=== PATIENT | male | born 1990 | race American Indian/Alaskan Native ===

== ENCOUNTER 2022-10-22 00:46 | Emergency (ER) | payer SELFPAY ==
[2022-10-22] MEDS ORDERED: Diphtheria,Pertussis(Acell),Tetanus Vaccine 0.5 ML Syringe IM ONE (02:48)
[2022-10-22] MEDS ORDERED: amLODIPine 10 MG Tab PO STA (02:49)
== END 2022-10-22 04:00 | disposition home or self-care (01) ==
LOC: JD.ED 00:46
DX: J02.9 Acute pharyngitis, unspecified (principal); I10 Essential (primary) hypertension; S50.811A Abrasion of right forearm, initial encounter; E66.9 Obesity, unspecified; Z68.41 Body mass index [BMI] 40.0-44.9, adult; Z88.0 Allergy status to penicillin; Z79.899 Other long term (current) drug therapy; W45.0XXA Nail entering through skin, initial encounter
CPT/HCPCS: 87651; 90471; 90715; 99283; A9270